=== PATIENT | female | born 1985 | race Caucasian/White ===

== ENCOUNTER 2016-09-23 06:07 | Inpatient (IN) | payer MEDICAID, OTHER ==
[2016-09-23] MEDS ORDERED: OXYTOCIN/RINGERS LACTATE 1,000 ML IV PRN (06:41)
[2016-09-23] MEDS ORDERED: LR 1,000 ML IV PRN (06:41)
[2016-09-23] MEDS ORDERED: TERBUTALINE SULFATE 1 MG/ML VIAL IV PRN (06:41)
[2016-09-23 06:56] LABS: % IMMATURE GRANULYOCYTES 0.3 % (0.0-1.1); ABSOLUTE IMMATURE GRANULOCYTES 0.03 10^3/uL (0.00-0.10); ADD DIFF? NO; ADD MORPH? NO; ADD SCAN? NO; ATYPICAL LYMPHOCYTE FLAG 0 (0-99); FRAGMENT RBC FLAG 0 (0-99); HEMATOCRIT 37.4 % (38.0-47.0); HEMOGLOBIN 13.4 g/dL (12.6-16.3); LEFT SHIFT FLG 0 (0-99); LIPEMIA HEMOLYSIS FLAG 90 (0-99); MEAN CELL HEMOGLOBIN 34.5 pg (27.9-34.1); MEAN CELL HEMOGLOBIN CONCENTR. 35.8 g/dL (32.4-36.7); MEAN CELL VOLUME 96.4 fL (81.5-99.8); MEAN PLATELET VOLUME 11.1 fL (8.7-11.7); PLATELET CLUMPS FLAG 10 (0-99); PLATELET COUNT 214 10^3/uL (150-400); RED BLOOD CELL COUNT 3.88 10^6/uL (4.18-5.33); RED CELL DISTRIBUTION WIDTH 12.1 % (11.5-15.2)
[2016-09-23] MEDS ORDERED: LIDOCAINE 1% 30 ML SDV ONE (07:05)
[2016-09-23] MEDS ORDERED: TERBUTALINE SULFATE 1 MG/ML VIAL ONE (07:06)
[2016-09-23] MEDS ORDERED: OXYTOCIN 10 UNIT/ML VIAL ONE (07:06)
[2016-09-23] MEDS ORDERED: AMMONIA AROMATIC 1 EACH AMP IH ONE (07:06)
[2016-09-23] MEDS ORDERED: MISOPROSTOL 200 MCG TAB ONE (07:07)
[2016-09-23] MEDS: CLINDAMYCIN 900 MG/DEXTROSE 50 ML IV SCH ×2 (07:10→16:01)
--- NOTE | 2016-09-23 08:57 | GHP ---
DATE OF ADMISSION: 09/23/2016 ADMISSION DIAGNOSES: 1. Intrauterine at 40-5/7 weeks gestation. 2. Active labor. 3. GBS positive. 4. History of depression and anxiety. INDICATION: Patient is a 30-year-old, 1, para 0, who is 40-5/7 weeks gestation. She began having contractions increasing in frequency and intensity overnight. She arrived to [facility] and was found to be 4 cm dilated, 80% effaced, -2 station, and arabella regularly. sta tus was reassuring. She was started on clindamycin for group beta strep positive with penicillin al dorian. MEDICAL HISTORY: Significant for anxiety and depression, childhood asthma, history of frequent urin altaf tract infections, eczema. MEDICATIONS: vitamins. SURGICAL HISTORY: Cystoscopy, wisdom teeth extraction, ankle surgery. ALLERGIES: Penicillin. She has anaphylaxis from tree nuts. FAMILY MEDICAL HISTORY: Noncontributory. SOCIAL HISTORY: She is . She denies tobacco, alcohol, or drug use. She works as an adminis trator. DRUG AND ALCOHOL COUNSELOR HISTORY: Menarche age 13. Periods are every 39 days, lasting 7 days. She is a 1, p francisco 0. Current has been uncomplicated. She had a echocardiogram for a questionable septal defect versus stenotic aortic outflow. The echocardiogram was unremarkable. She had a negative Verifi and a negative alpha fetoprotein. She denies any history of any abnormal Pap smea rs or sexually transmitted diseases. PHYSICAL EXAM: VITAL SIGNS: Stable. GENERAL APPEARANCE: She is alert and oriented x3. HEART: R ate is regular. LUNGS: Clear to auscultation bilaterally. ABDOMEN: Gravid, nondistended, nontend er. EXTREMITIES: Reveal no calf tenderness or edema. CERVICAL: At 6 a.m., was 4 cm dilated, 80% effaced, and -2 station. heart tracing has been category 1. She is arabella every 2-4 min utes. LABS: Blood type O positive, antibody screen negative. Rubella immune. GBS positive. HB sAg negative. HIV negative. Her 50 g glucose was normal. ASSESSMENT AND PLAN: A 30-year-old, 1, para 0, at 40-5/7 weeks gestation in active labor. She was started on clindamycin for group beta strep positive status, and will be managed expectantly . /[id number]/MODL
--- NOTE | 2016-09-23 12:34 | OBPROG ---
OBG Progress Note Assessment/Plan: Assessment: Plan: Subjective: patient has been in the tub and then on hands and knees for the last few hours. is exhaused. sve 8/80/-1. fhts reassuring. long discussion about management options. due for second dose of clindamycin at 3 pm. discussed AROM vs expectant management. discussed nitrous and epidural. patient would like to try nitrous. will reassess in several hours, or sooner if indicated Objective: 09/23/16 06:25 Patient ABO/Rh O POSITIVE 09/23/16 06:25 - SVE Dilation (cm): 8 Effacement (%): 80 Station: -2 Current Contraction Pattern: Regular FHR Pattern Variability: Moderate FHR Category: 1 Membranes: Intact Amniotic Fluid Color: Clear ICD10 Worksheet Patient Problems: Problems Problem Status Onset First stage of labor Acute
[2016-09-23] MEDS ORDERED: CLINDAMYCIN 900 MG/DEXTROSE 50 ML IV SCH (14:00)
--- NOTE | 2016-09-23 14:11 | OBPROG ---
OBG Progress Note Assessment/Plan: Assessment: Plan: Subjective: patient has been using nitrous oxide. exhausted. sve /-1. discussed management options of AROM, expectant management and epidural. Will get epidural and reassess. Objective: 09/23/16 06:25 Patient ABO/Rh O POSITIVE 09/23/16 06:25 - SVE Dilation (cm): 9 Effacement (%): 100 Station: -1 Current Contraction Pattern: Regular FHR Pattern Variability: Moderate FHR Category: 1 Membranes: Intact ICD10 Worksheet Patient Problems: Problems Problem Status Onset First stage of labor Acute
[2016-09-23] MEDS ORDERED: PHENYLEPHRINE HCL 100 MCG/ML SYR ONE (14:17)
[2016-09-23] MEDS ORDERED: fentaNYL 2MCG/ML/BUP 0.1% RTU 100 ML BAG EP ONE (14:17)
[2016-09-23] MEDS ORDERED: fentaNYL 100 MCG/2 ML INJ ONE (14:17)
[2016-09-23] MEDS ORDERED: BUPIVACAINE 0.25% 30 ML SDV ONE (14:17)
[2016-09-23] MEDS ORDERED: ONDANSETRON 4 MG/2 ML VIAL IVP PRN (16:49)
[2016-09-23] MEDS ORDERED: PHENYLEPHRINE HCL 100 MCG/ML SYR IVP PRN (16:49)
--- NOTE | 2016-09-23 16:52 | POSTANESTH ---
Post Anesthetic Evaluation Cardiovascular Status: Normal, Stable Respiratory Status: Normal, Stable, Similar to Pre-op Cond. Level of Consciousness/Mental Status: Can Participate in Eval, Alert and Oriented Pain Control: Adequate, Prn Tx Ordered Nausea/Vomiting Control: Adequate, Prn Tx Ordered Complications Possibly Related to Anesthesia: None Noted (Tolerated CSE well, stable, comfortable.)
--- NOTE | 2016-09-23 16:55 | PREANESOB ---
Obstetric Pre-Anesthesia Info - General Info Proposed Procedure: Labor and delivery. : 1 Para: 0 WBD: 40 - Info Status: Postmature Monitors: External FHR Baseline (bpm): 130 FHR Pattern: Reassuring - Labor Status Cervical Dilation per last OB SVE: 9 Station per last OB SVE: -1 Amniotic Fluid Color: Clear Indications for Labor Analgesia: Pain Control Labor Epidural: Proposed Anesthesia ROS: Exercise induced asthma. Allergies/Adverse Reactions: Allergy/AdvReac Type Severity Reaction Status Date / Time tree nut Allergy Severe Anaphylaxis Verified 09/23/16 06:38 Penicillins Allergy Verified 09/23/16 07:12 Home Medications: Medication Instructions Recorded Folic Acid 1 tab PO DAILY 09/23/16 Iron 1 tab PO BID 09/23/16 1 tab PO DAILY 09/23/16 Visit Medications: Generic Name Dose Route Start Last Admin Trade Name Freq PRN Reason Stop Dose Admin Diphenhydramine HCl 25 - 50 mg 09/23/16 16:49 Benadryl Injection IVP 03/22/17 16:48 Q6HRS PRN Itching Lactated Ringer's 1,000 mls @ 0 mls/hr 09/23/16 06:41 Lr IV 03/22/17 06:40 PRN PRN SEE PROTOCOL CONDITIONS Protocol Per Protocol Oxytocin/Lactated Ringer's 1,000 mls @ 150 mls/hr 09/23/16 06:41 Pitocin 20 Units/Lr (Premix) IV PRN PRN Post- bleeding Clindamycin Phosphate/Dextrose 50 mls @ 100 mls/hr 09/23/16 07:00 09/23/16 16 :01 Cleocin 900 Mg (Premix) IV 10/23/16 06:59 50 mls Q8HRS NAYA Administration Protocol Fentanyl/Bupivacaine HCl 100 mls @ 0 mls/hr 09/23/16 17:00 Fentanyl/Bupivacaine/Ns 2 Mcg/Ml 0.1% (Premix EP 10/03/16 16:59 CONT NAYA Protocol As Directed Lactated Ringer's 500 mls @ 0 mls/hr 09/23/16 17:00 Lr IV 03/22/17 16:59 CONT NAYA As Directed Ibuprofen 600 mg 09/23/16 06:41 Motrin PO 03/22/17 06:40 Q6HRS PRN post , inflammation Ondansetron HCl 4 mg 09/23/16 16:49 Zofran IVP 03/22/17 16:48 Q4HRS PRN Nausea/Vomiting, Can't Take PO Phenylephrine HCl 100 mcg 09/23/16 16:49 Burke-Synephrine IVP 03/22/17 16:48 .Q2M PRN Hypotension Terbutaline Sulfate 0.25 mg 09/23/16 06:41 Brethine IV 03/22/17 06:40 ONCE PRN Tachysystole Discontinued Medications Generic Name Dose Route Start Last Admin Trade Name Freq PRN Reason Stop Dose Admin Ammonia (Aromatic Spirit) Confirm 09/23/16 07:06 Ammonia Aromatic Administered 09/23/16 07:07 Dose 1 each IH .STK-MED ONE Bupivacaine HCl Confirm 09/23/16 14:17 Sensorcaine 0.25% Sdv Administered 09/23/16 14:18 Dose 30 ml .ROUTE .STK-MED ONE Fentanyl Confirm 09/23/16 14:17 Sublimaze Administered 09/23/16 14:18 Dose 100 mcg .ROUTE .STK-MED ONE Fentanyl/Bupivacaine HCl Confirm 09/23/16 14:17 Fentanyl/Bupivacaine/Ns 2 Mcg/Ml 0.1% (Premix Administered 09/23/16 14:18 Dose 100 ml EP .STK-MED ONE Lidocaine HCl Confirm 09/23/16 07:05 Lidocaine Hcl 1% Administered 09/23/16 07:06 Dose 30 ml .ROUTE .STK-MED ONE Misoprostol Confirm 09/23/16 07:07 Cytotec Administered 09/23/16 07:08 Dose 1,000 mcg .ROUTE .STK-MED ONE Oxytocin Confirm 09/23/16 07:06 Pitocin Administered 09/23/16 07:07 Dose 30 unit .ROUTE .STK-MED ONE Phenylephrine HCl Confirm 09/23/16 14:17 Burke-Synephrine Administered 09/23/16 14:18 Dose 1,000 mcg .ROUTE .STK-MED ONE Terbutaline Sulfate Confirm 09/23/16 07:06 Brethine Administered 09/23/16 07:07 Dose 1 mg .ROUTE .STK-MED ONE - Anesthesia History Anesthesia & Operative History: No Prior Problems - Focused Exam Blood Pressure: 135/57 Heart Rate: 57 Height/Weight (Nursing): Height 165.1 cm Weight 63.049 kg Physical Exam: Within normal limits. Respiratory: pleural rub ASA Status: II Labs: 09/23/16 06:25 Patient ABO/Rh O POSITIVE 09/23/16 06:25 - Plan Anesthetic Plan: CSE Consent Signed and on Chart: Yes Patient/Guardian Understands and Agrees to Plan: Yes
[2016-09-23] MEDS ORDERED: fentaNYL 2MCG/ML/BUP 0.1% RTU 100 ML EP SCH (17:00)
[2016-09-23] MEDS ORDERED: LR 500 ML IV SCH (17:00)
[2016-09-23] MEDS ORDERED: LR 500 ML IV PRN (17:46)
--- NOTE | 2016-09-23 17:51 | OBPROG ---
OBG Progress Note Assessment/Plan: Assessment: Plan: Subjective: patient comfortable with epidural. srom - clear fluid. patient is complete. tried pushing with several contractions. will labor down for 30 minutes. discussed pitocin because contractions have spaced out. Objective: 09/23/16 06:25 Patient ABO/Rh O POSITIVE 09/23/16 06:25 Temp Pulse Resp BP Pulse Ox 57 L 135/57 H 09/23/16 17:04 09/23/16 17:04 - SVE Dilation (cm): 10 Effacement (%): 100 Station: 0 Current Contraction Pattern: Regular FHR Pattern Variability: Moderate FHR Category: 1 ICD10 Worksheet Patient Problems: Problems Problem Status Onset First stage of labor Acute
[2016-09-23] MEDS ORDERED: OXYTOCIN/RINGERS LACTATE 500 ML IV SCH (18:00)
[2016-09-23] MEDS ORDERED: HYDROCORTISONE 0.5% CREAM TP PRN (19:29)
[2016-09-23] MEDS ORDERED: ACETAMINOPHEN 325 MG TAB PO PRN (19:29)
--- NOTE | 2016-09-23 19:29 | OBPROC ---
- Labor and Delivery Onset of Contractions Date: 09/23/16 Onset of Contractions Time: 01:30 Onset of Contractions Type: Spontaneous Rupture of Membranes Date: 09/23/16 Rupture of Membranes Time: 16:38 Rupture of Membranes Type: Spontaneous Amniotic Fluid Color: Clear Dilation Complete Time: 17:07 Delivery Type: Spontaneous Placenta Delivery Date: 09/23/16 Placenta Delivery Time: 17:07 Episiotomy/Laceration: 2nd Degree, Periurethral Repair: 3-0 Complications: None - Medications Labor Augmentation/Induction Meds Used: None Anesthesia: Epidural - Info A Delivery Date: 09/23/16 Delivery Time: 19:03 Sex of Infant: Male Score (1 Min): 8 Score (5 Min): 8
[2016-09-23] MEDS: IBUPROFEN 600 MG TAB PO PRN (19:53)
[2016-09-24] MEDS: CLINDAMYCIN 900 MG/DEXTROSE 50 ML IV SCH ×2 (00:41→11:42)
[2016-09-24] MEDS: IBUPROFEN 600 MG TAB PO PRN ×4 (01:51→20:29)
[2016-09-24 04:42] VITALS: RESP 16
[2016-09-24] MEDS: DOCUSATE SODIUM 100 MG CAP PO PRN (08:31)
--- NOTE | 2016-09-24 08:42 | SOAPPROG ---
SOAP Progress Note Assessment/Plan: Assessment: nipples intact. pain well managed ff@u scant rubra lochia perineum approximated minimal swelling occasional elevated bp post Plan:pp day 1 09/24/16 08:41 Subjective: Doing well. Feeling some pain at perineum. Coping well. Learning how to breastfeed Objective: Vital Signs Temp Pulse Resp BP Pulse Ox 36.1 C 57 L 16 143/78 H 95 09/24/16 01:50 09/24/16 01:50 09/24/16 01:50 09/24/16 01:50 09/24/16 01:50 Laboratory Results 09/23/16 06:25 09/23/16 09/24/16 09/25/16 05:59 05:59 05:59 Intake Total 3000 Output Total 200 Balance 2800 - Time Spent With Patient Time Spent With Patient: 20 minutes - Pending Discharge Pending Discharge Within 24 Hours: Yes Pending Discharge Date: 09/25/16 Pending Discharge Time: 11:00 ICD10 Worksheet Patient Problems: Problems Problem Status Onset Delivery normal Acute First stage of labor Acute
--- NOTE | 2016-09-24 09:49 | SOAPPROG ---
SOAP Progress Note Assessment/Plan: Assessment: nipples intact. pain well managed ff@u scant rubra lochia perineum approximated minimal swelling occasional elevated bp post Plan:pp day 1 09/24/16 08:41 Objective: Vital Signs Temp Pulse Resp BP Pulse Ox 36.1 C 57 L 16 143/78 H 95 09/24/16 01:50 09/24/16 01:50 09/24/16 01:50 09/24/16 01:50 09/24/16 01:50 Laboratory Results 09/23/16 06:25 09/23/16 09/24/16 09/25/16 05:59 05:59 05:59 Intake Total 3000 Output Total 200 Balance 2800 Physical Exam - Physical Exam General Appearance: WD/WN, alert, no apparent distress Abdomen: other (ff@u) Pelvic Exam: vaginal bleeding (scant rubra lochia) Skin: normal color, warm/dry Extremities: normal range of motion, Francine's sign (negative bilaterally dtrs1+ bilaterally no clonus ) Neuro/Psych: no motor/sensory deficits, alert, normal mood/affect, oriented x 3 (pih labs today elevated bp ) ICD10 Worksheet Patient Problems: Problems Problem Status Onset Delivery normal Acute First stage of labor Acute
[2016-09-24 10:46] LABS: % IMMATURE GRANULYOCYTES 0.2 % (0.0-1.1); ABSOLUTE IMMATURE GRANULOCYTES 0.03 10^3/uL (0.00-0.10); ADD DIFF? NO; ADD MORPH? NO; ADD SCAN? NO; ATYPICAL LYMPHOCYTE FLAG 0 (0-99); FRAGMENT RBC FLAG 0 (0-99); HEMATOCRIT 35.3 % (38.0-47.0); HEMOGLOBIN 12.6 g/dL (12.6-16.3); LEFT SHIFT FLG 0 (0-99); LIPEMIA HEMOLYSIS FLAG 90 (0-99); MEAN CELL HEMOGLOBIN 35.4 pg (27.9-34.1); MEAN CELL HEMOGLOBIN CONCENTR. 35.7 g/dL (32.4-36.7); MEAN CELL VOLUME 99.2 fL (81.5-99.8); MEAN PLATELET VOLUME 11.3 fL (8.7-11.7); PLATELET CLUMPS FLAG 10 (0-99); PLATELET COUNT 187 10^3/uL (150-400); RED BLOOD CELL COUNT 3.56 10^6/uL (4.18-5.33)
[2016-09-24 10:52] LABS: ALANINE AMINOTRANSFERASE 29 IU/L (9-52); ASPARTATE AMINOTRANSFERASE 44 IU/L (14-46); BILIRUBIN,TOTAL 0.5 mg/dL (0.1-1.4); BILIRUBIN-CONJUGATED 0.3 mg/dL (0.0-0.5); BILIRUBIN-UNCONJUGATED 0.2 mg/dL (0.0-1.1); CREATININE 0.7 mg/dL (0.6-1.0); GLOMERULAR FILTRATION RATE > 60; LACTATE DEHYDROGENASE 762 IU/L (313-618); URIC ACID 4.8 mg/dL (2.5-6.8)
[2016-09-24] MEDS: HYDROCODONE/APAP 5/325 TAB PO PRN (13:54)
[2016-09-24] MEDS ORDERED: EPSOM SALT 454 GM TP ONE (16:07)
[2016-09-25] MEDS: IBUPROFEN 600 MG TAB PO PRN ×2 (02:02→08:05)
[2016-09-25] MEDS: DOCUSATE SODIUM 100 MG CAP PO PRN (08:06)
--- NOTE | 2016-09-25 08:31 | SOAPPROG ---
SOAP Progress Note Assessment/Plan: Assessment: ppd# 2 s/p breast feeding Rh positive uncomplicated post course Plan: routine post care discharge instructions 09/25/16 08:28 Subjective: patient is doing well. pain is well controlled. normal lochia. denies headache and changes in vision. ambulating. passing gas. breast feeding is going well. denies headache and changes in vision. ready to go home Objective: Vital Signs Temp Pulse Resp BP Pulse Ox 36.1 C 61 16 132/86 H 95 09/24/16 20:50 09/24/16 20:50 09/24/16 20:50 09/24/16 20:50 09/24/16 20:50 Laboratory Results 09/24/16 10:30 09/24/16 10:30 09/24/16 09/25/16 09/26/16 05:59 05:59 05:59 Intake Total 3000 Output Total 200 Balance 2800 Physical Exam - Physical Exam General Appearance: WD/WN, alert, no apparent distress Respiratory: chest non-tender, lungs clear, normal breath sounds Cardiac/Chest: normal peripheral pulses, regular rate, rhythm Abdomen: normal bowel sounds, non-tender, soft, other (fundus firm and non tender) Skin: normal color, warm/dry Extremities: normal range of motion, non-tender, normal inspection, normal capillary refill Neuro/Psych: no motor/sensory deficits, alert, normal mood/affect, oriented x 3 ICD10 Worksheet Patient Problems: Problems Problem Status Onset Delivery normal Acute First stage of labor Acute
[2016-09-25] MEDS ORDERED: IRON POLYSAC/IRON HEME 28 MG TAB PO SCH (09:00)
[2016-09-25 09:10] VITALS: BP 112/78; PULSE 60; TEMP 96.6; O2SAT 94
[2016-09-25] MEDS: HYDROCODONE/APAP 5/325 TAB PO PRN (10:57)
== END 2016-09-25 12:55 | disposition home or self-care (01) | DRG 775 ==
LOC: OBSVTOIN 06:07 → FLD 06:07 → FOB 22:30
PROVIDERS: ADMIT Obstetrics & Gynecology; ATTEND Obstetrics & Gynecology
PROC: 0UQMXZZ Repair Vulva, External Approach (ICD-10-PCS; principal; 2016-09-23)
PROC: 10E0XZZ Delivery of Products of Conception, External Approach (ICD-10-PCS; principal; 2016-09-23)
PROC: 0KQM0ZZ Repair Perineum Muscle, Open Approach (ICD-10-PCS; principal; 2016-09-23)
DX: O70.1 Second degree perineal laceration during delivery (principal); O71.82 Other specified trauma to perineum and vulva; O99.824 Streptococcus B carrier state complicating childbirth; O48.0 Post-term pregnancy; Z3A.40 40 weeks gestation of pregnancy; Z37.0 Single live birth
CPT/HCPCS: J2370; J2590; J3010; J3105